=== PATIENT | female | born 1975 | race African-American/Black ===

== ENCOUNTER 2020-01-19 03:40 | Inpatient (IN) | payer MEDICARE, MEDICAID ==
[~2020-01-19] VITALS: Ht 162.6 cm; Wt 113.5 kg
[~2020-01-19 03:40] MED LIST: DIVA-78 PO; HALO10 PO; TRAZ-257 PO
[2020-01-19 04:05] VITALS: BP 118/74
[2020-01-19] MEDS ORDERED: LORazepam 2 MG TABLET PO PRN (04:30)
[2020-01-19] MEDS ORDERED: ZOLPIDEM TARTRATE 10 MG TABLET PO PRN (04:30)
[2020-01-19] MEDS ORDERED: HALOPERIDOL 5 MG TABLET PO PRN (04:30)
[2020-01-19 08:40] VITALS: BP 109/60
[2020-01-19] MEDS: DIVALPROEX SODIUM 500 MG DR TABLET PO SCH ×2 (10:15→21:00)
[2020-01-19] MEDS ORDERED: MAGNESIUM HYDROXIDE SUSPENSION 30 ML UDCUP PO PRN (11:30)
[2020-01-19] MEDS ORDERED: CloNIDine HCL 0.1 MG TABLET PO PRN (11:30)
[2020-01-19] MEDS ORDERED: LOPERAMIDE HCL 2 MG CAPSULE PO PRN (11:30)
[2020-01-19] MEDS ORDERED: DOCUSATE SODIUM 100 MG CAPSULE PO PRN (11:30)
[2020-01-19] MEDS ORDERED: ALBUTEROL SULFATE HFA 90 MCG/PUFF 8 GM INHALER IH PRN (11:30)
[2020-01-19] MEDS ORDERED: GuaiFENesin/D-METHORPHAN [SUGAR-FREE] 200-20MG/10 ML SYRUP UDCUP PO PRN (11:30)
[2020-01-19] MEDS ORDERED: PETROLATUM,WHITE 28 GM JELLY TP PRN (11:30)
[2020-01-19] MEDS ORDERED: ONDANSETRON HCL 4 MG TABLET PO PRN (11:30)
[2020-01-19] MEDS ORDERED: IBUPROFEN 400 MG TABLET PO PRN (11:30)
[2020-01-19] MEDS ORDERED: MAG HYDROX/AL HYDROX/SIMETH ES 30 ML SUSPENSION UDCUP PO PRN (11:30)
[2020-01-19] MEDS ORDERED: NICOTINE 14 MG/24 HOUR PATCH TD PRN (11:30)
[2020-01-19] MEDS ORDERED: ACETAMINOPHEN 325 MG TABLET PO PRN (11:30)
[2020-01-19] MEDS ORDERED: TraZODone HCL 100 MG TABLET PO SCH (21:00)
[2020-01-19] MEDS ORDERED: HALOPERIDOL 10 MG TABLET PO SCH (21:00)
[2020-01-19 22:10] VITALS: BP 92/52
[2020-01-20 04:34] VITALS: BP 101/62
[2020-01-20 08:33] VITALS: BP 119/57
[2020-01-20 08:46] LABS: BASOPHILS % (AUTO) 1.5 % (0.0-2.0); HEMATOCRIT 40.1 % (36-46); HEMOGLOBIN 12.9 g/dL (12.0-16.0); LYMPHOCYTES # (AUTO) 2.9 K/uL (1.0-4.8); LYMPHOCYTES % (AUTO) 51.5 % (22.0-44.0); MEAN CORPUSCULAR HEMOGLOBIN 29.5 pg (26.0-34.0); MEAN CORPUSCULAR HGB CONC 32.1 G/dL (31.0-37.0); MEAN CORPUSCULAR VOLUME 92 fL (80-100); MONOCYTES # (AUTO) 0.7 K/uL (0.1-1.0); MONOCYTES % (AUTO) 12.1 % (2.0-9.0); NEUTROPHILS # (AUTO) 1.8 K/uL (1.8-7.7); NEUTROPHILS % (AUTO) 31.9 % (40.0-70.0); PLATELET COUNT (AUTO) 327 K/uL (150-450); RED BLOOD CELL COUNT(AUTO) 4.37 MIL/uL (4.00-5.20); RED CELL DISTRIBUTION WIDTH 13.7 % (11.5-14.5)
[2020-01-20 09:24] LABS: ALANINE AMINOTRANSFERASE 18 U/L (12-78); ALBUMIN 3.3 g/dL (3.4-5.0); ALKALINE PHOSPHATASE 43 U/L (46-116); ANION GAP 11 mmol/L (8-16); ASPARTATE AMINOTRANSFERASE 10 U/L (15-37); BILIRUBIN,TOTAL 0.3 mg/dL (0.1-1.0); CARBON DIOXIDE 25 mmol/L (22-29); CHLORIDE 106 mmol/L (98-107); CHOL/HDL RATIO 2.6 (3.9-5.7); CHOLESTEROL 166 mg/dL (131-200); CREATININE 0.89 mg/dL (0.60-1.30); GLOMERULAR FILTR. RATE CALC > 60 mL/min (>60); GLUCOSE,RANDOM 114 mg/dL (70-110); HDL CHOLESTEROL 64 mg/dL (40-60); LDL CHOL (CALC.) 83 mg/dL (0-130); POTASSIUM 3.8 mmol/L (3.5-5.1); SODIUM SERUM 142 mmol/L (136-145); THYROID STIMULATING HORMONE 0.89 uIU/mL (0.36-3.74); TOTAL PROTEIN, SERUM 7.2 g/dL (6.4-8.2); TRIGLYCERIDES 95 mg/dL (15-150); UREA NITROGEN, BLOOD 11 mg/dL (7-18)
[2020-01-20] MEDS: DIVALPROEX SODIUM 500 MG DR TABLET PO SCH (09:28)
[2020-01-20 11:27] LABS: HEMOGLOBIN A1C 5.4 % (3.8-5.6)
== END 2020-01-20 14:24 | disposition short-term general hospital (02) | DRG 885 ==
LOC: B3A 03:40
PROVIDERS: ADMIT Psychiatry & Neurology Child & Adolescent Psychiatry; ATTEND Psychiatry & Neurology Psychiatry
DX: F25.0 Schizoaffective disorder, bipolar type (principal); R45.851 Suicidal ideations; N39.0 Urinary tract infection, site not specified; F10.10 Alcohol abuse, uncomplicated; D64.9 Anemia, unspecified; Y90.9 Presence of alcohol in blood, level not specified; F19.10 Other psychoactive substance abuse, uncomplicated; I10 Essential (primary) hypertension; Z91.048 Other nonmedicinal substance allergy status
CPT/HCPCS: 83036; 84443; 87081

== ENCOUNTER 2020-01-20 12:41 | Inpatient (IN) | payer MEDICARE, MEDICAID ==
[~2020-01-20] VITALS: Ht 162.6 cm; Wt 110.5 kg
[2020-01-20 15:16] VITALS: BP 125/69
[2020-01-20 16:00] VITALS: BP 133/79
[2020-01-20] MEDS ORDERED: -PHARMACY VACCINE NOTE- MISC ONE (16:30)
[2020-01-20] MEDS: LORazepam 2 MG TABLET PO PRN (19:27)
[2020-01-20] MEDS: HALOPERIDOL 10 MG TABLET PO SCH (20:45)
[2020-01-20] MEDS: DIVALPROEX SODIUM 500 MG DR TABLET PO SCH (20:46)
[2020-01-20] MEDS: TraZODone HCL 100 MG TABLET PO SCH (20:46)
[2020-01-20] MEDS ORDERED: DIVALPROEX SODIUM 500 MG DR TABLET PO SCH (21:00)
[2020-01-20] MEDS ORDERED: TraZODone HCL 100 MG TABLET PO SCH (21:00)
[2020-01-20] MEDS ORDERED: HALOPERIDOL 10 MG TABLET PO SCH (21:00)
[2020-01-21 01:24] VITALS: BP 121/78
[2020-01-21 08:51] VITALS: BP 105/60
[2020-01-21] MEDS: DIVALPROEX SODIUM 500 MG DR TABLET PO SCH ×2 (09:11→20:34)
[2020-01-21] MEDS ORDERED: CloNIDine HCL 0.1 MG TABLET PO PRN (14:30)
[2020-01-21] MEDS ORDERED: NICOTINE 14 MG/24 HOUR PATCH TD PRN (14:30)
[2020-01-21] MEDS ORDERED: ACETAMINOPHEN 325 MG TABLET PO PRN (14:30)
[2020-01-21] MEDS ORDERED: PETROLATUM,WHITE 28 GM JELLY TP PRN (14:30)
[2020-01-21] MEDS ORDERED: LOPERAMIDE HCL 2 MG CAPSULE PO PRN (14:30)
[2020-01-21] MEDS ORDERED: ALBUTEROL SULFATE HFA 90 MCG/PUFF 8 GM INHALER IH PRN (14:30)
[2020-01-21] MEDS ORDERED: GuaiFENesin/D-METHORPHAN [SUGAR-FREE] 200-20MG/10 ML SYRUP UDCUP PO PRN (14:30)
[2020-01-21] MEDS ORDERED: MAGNESIUM HYDROXIDE SUSPENSION 30 ML UDCUP PO PRN (14:30)
[2020-01-21] MEDS ORDERED: DOCUSATE SODIUM 100 MG CAPSULE PO PRN (14:30)
[2020-01-21] MEDS ORDERED: IBUPROFEN 400 MG TABLET PO PRN (14:30)
[2020-01-21] MEDS ORDERED: MAG HYDROX/AL HYDROX/SIMETH ES 30 ML SUSPENSION UDCUP PO PRN (14:30)
[2020-01-21] MEDS ORDERED: ONDANSETRON HCL 4 MG TABLET PO PRN (14:30)
[2020-01-21 16:00] VITALS: BP 121/65
[2020-01-21 18:36] VITALS: BP 121/65
[2020-01-21] MEDS: HALOPERIDOL 10 MG TABLET PO SCH (20:34)
[2020-01-21] MEDS: NITROFURANTOIN/NITROFURAN MAC 100 MG CAPSULE [MACROBID] PO SCH (20:34)
[2020-01-21] MEDS: TraZODone HCL 100 MG TABLET PO SCH (20:34)
[2020-01-22] VITALS: BP 116/68
[2020-01-22] MEDS: LORazepam 2 MG TABLET PO PRN (00:03)
[2020-01-22 08:20] VITALS: BP 133/68
[2020-01-22] MEDS: NITROFURANTOIN/NITROFURAN MAC 100 MG CAPSULE [MACROBID] PO SCH ×2 (09:00→16:33)
[2020-01-22] MEDS: DIVALPROEX SODIUM 500 MG DR TABLET PO SCH ×2 (09:00→20:36)
[2020-01-22 16:19] VITALS: BP 142/74
[2020-01-22] MEDS: HALOPERIDOL 10 MG TABLET PO SCH (20:36)
[2020-01-22] MEDS: TraZODone HCL 100 MG TABLET PO SCH (20:36)
[2020-01-23 06:25] VITALS: BP 117/71
[2020-01-23] MEDS: DIVALPROEX SODIUM 500 MG DR TABLET PO SCH ×2 (08:36→20:35)
[2020-01-23] MEDS: NITROFURANTOIN/NITROFURAN MAC 100 MG CAPSULE [MACROBID] PO SCH ×2 (08:36→16:37)
[2020-01-23 08:40] VITALS: BP 140/84
[2020-01-23] MEDS: LORazepam 2 MG TABLET PO PRN (15:38)
[2020-01-23 17:31] VITALS: BP 141/84
[2020-01-23] MEDS: TraZODone HCL 100 MG TABLET PO SCH (20:34)
[2020-01-23] MEDS: HALOPERIDOL 10 MG TABLET PO SCH (20:35)
[2020-01-24 06:33] VITALS: BP 123/63
[2020-01-24 08:09] VITALS: BP 100/60
[2020-01-24] MEDS: DIVALPROEX SODIUM 500 MG DR TABLET PO SCH ×2 (08:26→20:29)
[2020-01-24] MEDS: NITROFURANTOIN/NITROFURAN MAC 100 MG CAPSULE [MACROBID] PO SCH ×2 (08:26→16:41)
[2020-01-24 16:48] VITALS: BP 111/76
[2020-01-24] MEDS: LORazepam 2 MG TABLET PO PRN (17:15)
[2020-01-24] MEDS: HALOPERIDOL 10 MG TABLET PO SCH (20:29)
[2020-01-24] MEDS: TraZODone HCL 100 MG TABLET PO SCH (20:29)
[2020-01-24] MEDS: ZOLPIDEM TARTRATE 10 MG TABLET PO PRN (23:40)
[2020-01-25 00:20] VITALS: BP 109/64
[2020-01-25] MEDS: NITROFURANTOIN/NITROFURAN MAC 100 MG CAPSULE [MACROBID] PO SCH ×2 (08:30→16:35)
[2020-01-25] MEDS: DIVALPROEX SODIUM 500 MG DR TABLET PO SCH ×2 (08:30→20:31)
[2020-01-25 08:48] VITALS: BP 131/65
[2020-01-25] MEDS ORDERED: RisperiDONE MICROSPHERES 50 MG/2 ML SYRINGE IM ONE (09:00)
[2020-01-25 09:09] LABS: CHOL/HDL RATIO 2.5 (3.9-5.7)
[2020-01-25] MEDS: LORazepam 2 MG TABLET PO PRN (10:36)
[2020-01-25 16:07] VITALS: BP 107/77
[2020-01-25] MEDS: TraZODone HCL 100 MG TABLET PO SCH (20:31)
[2020-01-25] MEDS: HALOPERIDOL 10 MG TABLET PO SCH (20:32)
[2020-01-26 05:19] VITALS: BP 114/69
[2020-01-26] MEDS: DIVALPROEX SODIUM 500 MG DR TABLET PO SCH ×2 (08:10→20:35)
[2020-01-26] MEDS: NITROFURANTOIN/NITROFURAN MAC 100 MG CAPSULE [MACROBID] PO SCH ×2 (08:10→16:30)
[2020-01-26 08:17] VITALS: BP 136/86
[2020-01-26 16:22] VITALS: BP 110/69
[2020-01-26] MEDS: HALOPERIDOL 10 MG TABLET PO SCH (20:35)
[2020-01-26] MEDS: TraZODone HCL 100 MG TABLET PO SCH (20:35)
[2020-01-27 00:37] VITALS: BP 109/66
[2020-01-27] MEDS: ZOLPIDEM TARTRATE 10 MG TABLET PO PRN ×2 (01:22→23:48)
[2020-01-27 08:34] VITALS: BP 153/95
[2020-01-27] MEDS: DIVALPROEX SODIUM 500 MG DR TABLET PO SCH ×2 (08:35→20:26)
[2020-01-27] MEDS: NITROFURANTOIN/NITROFURAN MAC 100 MG CAPSULE [MACROBID] PO SCH ×2 (08:35→16:23)
[2020-01-27 08:48] LABS: ANION GAP 7 mmol/L (8-16); CALCIUM, TOTAL 8.8 mg/dL (8.8-10.5); CARBON DIOXIDE 26 mmol/L (22-29); CHLORIDE 104 mmol/L (98-107); CREATININE 0.88 mg/dL (0.60-1.30); GLOMERULAR FILTR. RATE CALC > 60 mL/min (>60); GLUCOSE,RANDOM 80 mg/dL (70-110); POTASSIUM 3.9 mmol/L (3.5-5.1); SODIUM SERUM 137 mmol/L (136-145); UREA NITROGEN, BLOOD 11 mg/dL (7-18)
[2020-01-27] MEDS: LORazepam 2 MG TABLET PO PRN (10:01)
[2020-01-27 16:13] VITALS: BP 122/77
[2020-01-27] MEDS: TraZODone HCL 100 MG TABLET PO SCH (20:26)
[2020-01-27] MEDS: HALOPERIDOL 10 MG TABLET PO SCH (20:26)
[2020-01-28 01:31] VITALS: BP 103/64
[2020-01-28 09:11] VITALS: BP 135/76
[2020-01-28] MEDS: DIVALPROEX SODIUM 500 MG DR TABLET PO SCH ×2 (09:50→20:15)
[2020-01-28] MEDS: NITROFURANTOIN/NITROFURAN MAC 100 MG CAPSULE [MACROBID] PO SCH (09:50)
[2020-01-28] MEDS: LORazepam 2 MG TABLET PO PRN (12:00)
[2020-01-28] MEDS: HALOPERIDOL 5 MG TABLET PO PRN (12:00)
[2020-01-28 16:00] VITALS: BP 116/73
[2020-01-28] MEDS: TraZODone HCL 100 MG TABLET PO SCH (20:15)
[2020-01-28] MEDS: HALOPERIDOL 10 MG TABLET PO SCH (20:15)
[2020-01-28] MEDS: ZOLPIDEM TARTRATE 10 MG TABLET PO PRN (22:56)
[2020-01-29 05:17] VITALS: BP 117/84
[2020-01-29 08:39] VITALS: BP 128/69
[2020-01-29] MEDS: DIVALPROEX SODIUM 500 MG DR TABLET PO SCH ×2 (08:58→20:41)
[2020-01-29] MEDS: LORazepam 2 MG TABLET PO PRN (11:54)
[2020-01-29] MEDS: HALOPERIDOL 5 MG TABLET PO PRN (11:54)
[2020-01-29 16:21] VITALS: BP 129/77
[2020-01-29] MEDS: TraZODone HCL 100 MG TABLET PO SCH (20:41)
[2020-01-29] MEDS: HALOPERIDOL 10 MG TABLET PO SCH (20:41)
[2020-01-30 01:35] VITALS: BP 117/75
[2020-01-30 08:13] VITALS: BP 118/75
[2020-01-30] MEDS: DIVALPROEX SODIUM 500 MG DR TABLET PO SCH ×2 (09:16→20:36)
[2020-01-30] MEDS: LORazepam 2 MG TABLET PO PRN (13:14)
[2020-01-30 16:27] VITALS: BP 122/80
[2020-01-30] MEDS: TraZODone HCL 100 MG TABLET PO SCH (20:36)
[2020-01-30] MEDS: HALOPERIDOL 10 MG TABLET PO SCH (20:36)
[2020-01-31 01:44] VITALS: BP 120/67
[2020-01-31] MEDS: DIVALPROEX SODIUM 500 MG DR TABLET PO SCH ×2 (08:22→20:31)
[2020-01-31 08:23] VITALS: BP 121/74
[2020-01-31] MEDS: LORazepam 2 MG TABLET PO PRN (15:48)
[2020-01-31 16:20] VITALS: BP 131/69
[2020-01-31] MEDS: TraZODone HCL 100 MG TABLET PO SCH (20:32)
[2020-01-31] MEDS: HALOPERIDOL 10 MG TABLET PO SCH (20:32)
[2020-02-01] MEDS: LORazepam 2 MG TABLET PO PRN ×2 (05:11→18:53)
[2020-02-01 05:12] VITALS: BP_SYST 127; BP_SYST 128; BP_DIAS 76; BP_DIAS 77
[2020-02-01] MEDS: DIVALPROEX SODIUM 500 MG DR TABLET PO SCH (08:49)
[2020-02-01 10:47] VITALS: BP 99/58
[2020-02-01 16:59] VITALS: BP 122/84
[2020-02-01] MEDS: DIVALPROEX SODIUM 250 MG DR TABLET PO SCH (20:14)
[2020-02-01] MEDS: HALOPERIDOL 10 MG TABLET PO SCH (20:14)
[2020-02-01] MEDS: TraZODone HCL 100 MG TABLET PO SCH (20:14)
[2020-02-02 04:45] VITALS: BP 123/80
[2020-02-02] MEDS: LORazepam 2 MG TABLET PO PRN (04:46)
[2020-02-02] MEDS: DIVALPROEX SODIUM 250 MG DR TABLET PO SCH ×2 (08:30→20:34)
[2020-02-02 08:34] VITALS: BP 119/76
[2020-02-02 16:08] VITALS: BP 117/74
[2020-02-02] MEDS: TraZODone HCL 100 MG TABLET PO SCH (20:34)
[2020-02-02] MEDS: HALOPERIDOL 10 MG TABLET PO SCH (20:34)
[2020-02-02] MEDS: ZOLPIDEM TARTRATE 10 MG TABLET PO PRN (20:52)
[2020-02-03 00:40] VITALS: BP 111/67
[2020-02-03] MEDS: DIVALPROEX SODIUM 250 MG DR TABLET PO SCH ×2 (08:12→20:15)
[2020-02-03 08:52] VITALS: BP 106/78
[2020-02-03] MEDS: LORazepam 2 MG TABLET PO PRN (10:13)
[2020-02-03 16:09] VITALS: BP 110/74
[2020-02-03] MEDS: TraZODone HCL 100 MG TABLET PO SCH (20:15)
[2020-02-03] MEDS: HALOPERIDOL 10 MG TABLET PO SCH (20:15)
[2020-02-03] MEDS: ZOLPIDEM TARTRATE 10 MG TABLET PO PRN (21:15)
[2020-02-04 00:24] VITALS: BP 128/68
[2020-02-04] MEDS: DIVALPROEX SODIUM 250 MG DR TABLET PO SCH ×2 (08:16→20:29)
[2020-02-04 08:21] VITALS: BP 122/70
[2020-02-04 16:18] VITALS: BP 118/74
[2020-02-04] MEDS: LORazepam 2 MG TABLET PO PRN (17:15)
[2020-02-04] MEDS: HALOPERIDOL 10 MG TABLET PO SCH (20:29)
[2020-02-04] MEDS: TraZODone HCL 100 MG TABLET PO SCH (20:29)
[2020-02-04] MEDS: ZOLPIDEM TARTRATE 10 MG TABLET PO PRN (21:11)
[2020-02-05 00:09] VITALS: BP 120/78
[2020-02-05 08:10] VITALS: BP 108/76
[2020-02-05] MEDS: DIVALPROEX SODIUM 250 MG DR TABLET PO SCH ×2 (08:47→20:03)
[2020-02-05] MEDS: LORazepam 2 MG TABLET PO PRN (10:30)
[2020-02-05 10:33] VITALS: BP 112/77
[2020-02-05 16:17] VITALS: BP 135/80
[2020-02-05] MEDS: TraZODone HCL 100 MG TABLET PO SCH (20:03)
[2020-02-05] MEDS: HALOPERIDOL 10 MG TABLET PO SCH (20:04)
[2020-02-05] MEDS: ZOLPIDEM TARTRATE 10 MG TABLET PO PRN (21:22)
[2020-02-06 06:11] VITALS: BP 132/82
[2020-02-06] MEDS: DIVALPROEX SODIUM 250 MG DR TABLET PO SCH (08:06)
[2020-02-06 08:37] VITALS: BP 126/93
[2020-02-06] MEDS ORDERED: DIVA-76 PO ×4 (14:17→14:21)
[2020-02-06] MEDS ORDERED: TRAZ-257 PO (14:19)
[2020-02-06] MEDS ORDERED: DIVA250T4 PO (15:07)
== END 2020-02-06 15:00 | disposition home or self-care (01) | DRG 885 ==
LOC: B2X 14:30
PROVIDERS: ATTEND Psychiatry & Neurology Psychiatry
DX: F25.0 Schizoaffective disorder, bipolar type (principal); R45.851 Suicidal ideations; N39.0 Urinary tract infection, site not specified; I10 Essential (primary) hypertension; F10.10 Alcohol abuse, uncomplicated; D64.9 Anemia, unspecified; Z59.0 Homelessness; Z88.8 Allergy status to other drugs, medicaments and biological substances
CPT/HCPCS: 83036; J2794